=== PATIENT | female | born 1965 | race Caucasian/White ===

== ENCOUNTER → 2016-12-30 | Outpatient (CLI) | payer OTHER ==
[~2016-12-30] VITALS: Ht 160 cm; Wt 143.8 kg
[~2016-12-30] MED LIST: APAP500 PO; IBUPROFEN 200200 M1 PO; LEVOTHYROXIN0.125 M1 PO; LIPITOR10 MG PO; LOSARTAN-HCTZ1 EACH PO; NEXIUM20 MG PO; OMEGA-3 KRILL1 EAC3 PO; REQUIP 1 MG TABL1 M1 PO; VITAMIN D34000 UNIT PO; ZOLOFT100 MG PO
--- NOTE | ~2016-12-30 | S ---
[facility] [place] [address] SURGICAL PATH RPT PROCEDURE Name: HEATHER DE LA TORREGLADYS [place] Room #: [facility] Melissa.#: [id number] Admission: 12/30/16 Date of : 61 Discharge: Report #: [id number] Path Case #: [id number] PATHOLOGY REPORT COLLECTION DATE: 12/30/2016 RECEIVED DATE: 12/30/2016 SUBMITTING PHYS: Dr. Won Schafer OTHER PHYS: Dr. Jose M Mike SPECIMEN(S) RECEIVED: A.Cecum polyp B.70 cm polyp * * * * * * * * * * * * FINAL DIAGNOSIS: A. Colonic mucosa, "cecum polyp biopsy": - Fragments of tubular adenoma. - There is no evidence of high-grade dysplasia or malignancy. B. Colonic mucosa, "70 cm polyp biopsy": - Fragments of tubular adenoma. - There is no evidence of high-grade dysplasia or malignancy. (SHA:mgr; 01/03/2017) PATHOLOGIST: Zack French M.D. REPORT ELECTRONICALLY SIGNED BY: Zack French M.D. DATE/TIME: 01/03/2017 12:54 * * * * * * * * * * * * GROSS PATHOLOGY: A. Received in formalin labeled "Sharee De La Torre, cecum polyp," are 9 segments of landin to brown soft tissue measuring 3.1 x 0.2 x 0.2 cm in aggregate dimensions and ranging from 0.1 to 0.5 cm in maximum dimension. The specimen is submitted entirely in cassette A1. B. Received in formalin labeled "Sharee De La Torre, 70 cm polyp," is a 0.7 x 0.6 x 0.3 cm polypoid piece of landin soft tissue. The margin is inked and the tissue is sectioned perpendicular to the margin and submitted in its entirety in cassette B1. (HOWARD; 12/31/2016) CLINICAL HISTORY: Screening INITIAL CPT CODE(S): A; 38483 B; [address] [address] SURGICAL PATH RPT PROCEDURE Name: SHAREE DE LA TORRE Room #: [facility].#: [id number] Admission: 12/30/16 Date of : 61 Discharge: Report #: [id number] Path Case #: [id number] Professional services performed by [facility] at [address] , [place] [address] Technical services performed by [facility] at [address] [place] [address], [facility] [address] [address]. [facility] [address] [place] [address] PHONE: [phone] DIRECTOR: Brenden Fan M.D. * * * END OF REPORT * * *
== END | disposition home or self-care (01) ==
LOC: GI 09:25
DX: Z12.11 Encounter for screening for malignant neoplasm of colon (principal); D12.0 Benign neoplasm of cecum; D12.5 Benign neoplasm of sigmoid colon; K21.9 Gastro-esophageal reflux disease without esophagitis; I10 Essential (primary) hypertension; E78.00 Pure hypercholesterolemia, unspecified; M06.9 Rheumatoid arthritis, unspecified; M19.90 Unspecified osteoarthritis, unspecified site; F32.89 Other specified depressive episodes; F41.8 Other specified anxiety disorders; Z88.8 Allergy status to other drugs, medicaments and biological substances; Z79.899 Other long term (current) drug therapy; Z90.49 Acquired absence of other specified parts of digestive tract; Z98.890 Other specified postprocedural states
CPT/HCPCS: 62110; 62900